=== PATIENT | female | born 1960 | race Caucasian/White ===

== ENCOUNTER 2024-12-09 08:51 | Outpatient (CLI) | payer MEDICARE, SELFPAY | END 2024-12-09 08:52 | disposition home or self-care (01) | PROVIDERS: Visit Provider Nurse Practitioner Family | DX: E10.621 Type 1 diabetes mellitus with foot ulcer (principal); I87.311 Chronic venous hypertension (idiopathic) with ulcer of right lower extremity; I89.0 Lymphedema, not elsewhere classified; L97.512 Non-pressure chronic ulcer of other part of right foot with fat layer exposed; Z94.1 Heart transplant status; Z79.4 Long term (current) use of insulin | CPT/HCPCS: 11042; G0463 ==